=== PATIENT | male | born 1990 | race Hispanic/Latino ===

== ENCOUNTER 2022-08-12 12:44 | Emergency (ER) | payer OTHER, SELFPAY ==
[2022-08-12] MEDS ORDERED: Boostrix 0.5 ML (Tdap) VIAL (>/=7 yrs of age) ONE (13:28)
[2022-08-12] MEDS ORDERED: Lidocaine 1% w/Epinephrine 1:200K 30 ML VIAL ONE (13:28)
[2022-08-12] MEDS ORDERED: Bacitracin 1 PK ONE (13:31)
== END 2022-08-12 14:56 | disposition home or self-care (01) ==
LOC: CSHERS 12:44
DX: S61.512A Laceration without foreign body of left wrist, initial encounter (principal); E03.9 Hypothyroidism, unspecified; W26.8XXA Contact with other sharp object(s), not elsewhere classified, initial encounter; Z23 Encounter for immunization
CPT/HCPCS: 12002; 90471; 90715